=== PATIENT | female | born 1940 | race Caucasian/White ===

== ENCOUNTER 2016-09-11 03:05 | Inpatient (IN) ==
[2016-09-04 12:49] LABS: MANUAL DIFF NEEDED? NO; URINE MICRO REVIEW NEEDED? NO; URINE SOURCE CLEAN CATCH
[2016-09-04 12:53] LABS: BASO% 0.3 % (0.0-0.8); EOS# 0.08 X1000 (0.0-0.7); EOS% 0.9 % (0.0-10.0); HEMATOCRIT 38.6 % (37.0-47.0); HEMOGLOBIN 13.5 g/dL (12.0-16.0); LYMPH# 1.91 X1000 (1.2-3.4); LYMPH% 21.5 % (20.5-51.1); MCV 91.5 FL (81-99); MONO# 0.62 X1000 (0.11-0.59); MPV 9.4 FL (7.4-10.4); NEUT% 70.3 % (42.2-75.2); PLT 285 X1000 (130-400); RBC 4.22 XMIL (4.2-5.4)
[2016-09-04 12:54] LABS: BILIRUBIN URINE NEGATIVE (NEGATIVE); BLOOD URINE NEGATIVE (NEGATIVE); COLOR YELLOW; GLUCOSE URINE NEGATIVE (NEGATIVE); LEUKOCYTES URINE NEGATIVE (NEGATIVE); NITRITE URINE NEGATIVE (NEGATIVE); PROTEIN URINE NEGATIVE (NEGATIVE); SP GRAVITY URINE 1.013; TURBIDITY URINE CLEAR (CLEAR); UR EPITHELIAL CELLS <10 /HPF (<10); URINE BACTERIA NEGATIVE /HPF; URINE RBC <10 /HPF (<10); URINE WBC <10 /HPF (<10); UROBILINOGEN URINE NORMAL (NORMAL)
[2016-09-04 13:01] LABS: INR 0.96; PTT 27.1 Seconds (22.0-36.0)
[2016-09-04 13:22] LABS: AGAP 15; BUN 8 mg/dL (8-22); CALCIUM 9.6 mg/dL (8.8-10.2); CHLORIDE 96 mmol/L (98-107); COSMO 270; POTASSIUM 3.7 mmol/L (3.5-5.1); SODIUM 135 mmol/L (136-145); TCO2 24 mmol/L (25-35)
--- NOTE | 2016-09-04 16:15 | EKG Report ---
Test Performed on : 09/04/2016 12:32:37 PM Test Reason : PAT CAMP JOINT Blood Pressure : / mmHG Vent. Rate : 106 BPM Atrial Rate : 106 BPM P-R Int : 174 ms QRS Dur : 068 ms QT Int : 326 ms P-R-T Axes : 087 074 077 degrees QTc Int : 433 ms Sinus tachycardia. Possible Left atrial enlargement Nonspecific ST abnormality Abnormal ECG No previous ECGs available Confirmed by Vladimir DE LA PAZ, Codey Michaels ([id number]) on 09/06/2016 7:09:35 AM
[2016-09-11] MEDS ORDERED: FLEXERIL PO PRN (06:39)
[2016-09-11] MEDS ORDERED: SODIUM CHLORIDE 0.9% ONE (08:17)
[2016-09-11] MEDS ORDERED: TORADOL ONE (08:17)
[2016-09-11] MEDS ORDERED: VANCOMYCIN ONE (08:17)
[2016-09-11] MEDS ORDERED: CYKLOKAPRON 1,000 MG/NS 1,000 MG/100 ML IVPB ONE ×2 (08:17→08:19)
[2016-09-11] MEDS ORDERED: MARCAINE 0.25% PF/EPI 1:200,000 ONE (08:17)
[2016-09-11] MEDS ORDERED: NEOSPORIN G.U. IRRIGANT ONE (08:18)
[2016-09-11] MEDS ORDERED: EXPAREL 1.3% ONE (08:18)
[2016-09-11] MEDS ORDERED: COLACE ONE (08:28)
[2016-09-11] MEDS ORDERED: PEPCID ONE (08:28)
[2016-09-11] MEDS ORDERED: CELEBREX ONE (08:29)
[2016-09-11] MEDS ORDERED: KEFZOL 1 GM/D5W 1 GM/50 ML IVPB ONE (08:29)
[2016-09-11] MEDS ORDERED: LR 1,000 ML ONE (08:29)
[2016-09-11] MEDS ORDERED: LYRICA ONE (08:29)
[2016-09-11] MEDS ORDERED: REGLAN ONE (08:29)
--- NOTE | 2016-09-11 08:36 | HISTORY AND PHYSICAL ---
CHIEF COMPLAINT: Right knee pain. HISTORY OF PRESENT ILLNESS: This is a 76-year-old white female with a history of degenerative right knee. She has had considerable conservative treatment to include injections, medications, and other measures. However, these were only temporary and now she needs a right total knee arthroplasty. The surgical procedure as well as risks and benefits were explained to the patient and at this time she has agreed to proceed. ALLERGIES: Not allergic to any medications. PAST MEDICAL HISTORY: Serious illnesses: None. PAST SURGICAL HISTORY: ACDF, hysterectomy, and breast biopsy that was negative. REGULAR MEDICATIONS: Relafen 2 a day, pravastatin 1 a day, Premarin 1 a day, Flexeril p.r.n. REVIEW OF SYSTEMS: HEENT: No history of migraines, dizziness, loss conscious, CVA. Respiratory: She is a nonsmoker. No history of asthma, emphysema, shortness breath. Heart: No history heart abnormalities. Abdomen: No history of ulcer or digestive disorders. PHYSICAL EXAMINATION: GENERAL: This is a 76-year-old female, alert, and oriented. Her primary care physician is Dr. Ron. HEENT: Pupils equal, round, reactive. NECK: Good range of motion without adenopathy. She has had an ACDF. RESPIRATORY: Respirations equal, unlabored, clear bilaterally. HEART: Regular rate and rhythm. ABDOMEN: Soft, nontender. Bowel sounds present. EXTREMITIES: She complains of pain in her right knee and sometimes this pain is severe. She states she sometimes has difficulty walking and walks with a limp. She has minimal swelling at this time. Good sensation and pulses distally. IMPRESSION: Degenerative disease right knee. PLAN: Admitted at this time for right total knee arthroplasty. Dictated by Cyrus Barnes RN for Mina Shetty MD This chart was documented by the indicated scribe, Cyrus Barnes RN and accurately reflects the services I performed and decisions made by me, Mina Shetty MD, as attested by the provider's signature. cc: Mina Shetty MD
[2016-09-11 10:17] LABS: URINE MICRO REVIEW NEEDED? NO; URINE SOURCE CATH
[2016-09-11 10:21] LABS: BILIRUBIN URINE NEGATIVE (NEGATIVE); BLOOD URINE NEGATIVE (NEGATIVE); COLOR YELLOW; GLUCOSE URINE NEGATIVE (NEGATIVE); LEUKOCYTES URINE NEGATIVE (NEGATIVE); NITRITE URINE NEGATIVE (NEGATIVE); PROTEIN URINE NEGATIVE (NEGATIVE); SP GRAVITY URINE 1.009; TURBIDITY URINE CLEAR (CLEAR); UROBILINOGEN URINE NORMAL (NORMAL)
[2016-09-11 10:22] LABS: UR EPITHELIAL CELLS <10 /HPF (<10); URINE BACTERIA NEGATIVE /HPF; URINE RBC <10 /HPF (<10); URINE WBC <10 /HPF (<10)
[2016-09-11] MEDS ORDERED: DIPRIVAN 1% ONE (11:46)
[2016-09-11] MEDS ORDERED: FENTANYL ONE (11:47)
[2016-09-11] MEDS ORDERED: VERSED ONE (11:47)
[2016-09-11] MEDS ORDERED: NS 1,000 ML ONE (12:05)
--- NOTE | 2016-09-11 12:41 | Diag Imaging Result Doc PS360 ---
EXAM: KNEE 1-2 VIEWS-RIGHT HISTORY: right TKA COMMENT: There has been total knee arthroplasty. The alignment is apparently anatomic. IMPRESSION: Postsurgical changes Electronically signed by Eric Lu 09/11/2016 12:39 PM
[2016-09-11] MEDS ORDERED: MILK OF MAGNESIA PO PRN (13:00)
[2016-09-11] MEDS ORDERED: MORPHINE IV PRN (13:00)
[2016-09-11] MEDS ORDERED: NS 1,000 ML IV SCH (13:00)
[2016-09-11] MEDS ORDERED: ZOFRAN PO PRN (13:00)
[2016-09-11] MEDS: TYLENOL PO SCH ×2 (14:08→19:57)
[2016-09-11] MEDS ORDERED: ZOFRAN ONE (14:41)
[2016-09-11] MEDS ORDERED: XYLOCAINE-MPF 2% ONE (14:41)
[2016-09-11] MEDS ORDERED: DECADRON ONE (14:41)
[2016-09-11] MEDS ORDERED: LR 2,000 ML ONE (14:41)
[2016-09-11] MEDS ORDERED: OFIRMEV 1000 MG/ISOTONIC SOLN 1,000 MG/100 ML BOTTLE ONE (14:41)
[2016-09-11] MEDS: OXY IR PO PRN ×3 (14:59→23:19)
--- NOTE | 2016-09-11 15:25 | OPERATIVE NOTE ---
PROCEDURE DATE: 09/11/2016 PREOPERATIVE DIAGNOSIS: Degenerative arthritis of the right knee. POSTOPERATIVE DIAGNOSIS: Degenerative arthritis of the right knee. PROCEDURE: Right total knee arthroplasty with DePuy Attune size 5, narrow posterior stabilized femur, size 5 tibial tray, 12 mm rotating platform tibial insert, and a 32 mm medialized anatomic patella. SURGEON: Mina Shetty MD. CERTIFIED SURGICAL ASSISTANT: KEVIN Mcclellan. SECOND CERTIFIED SURGICAL ASSISTANT: Cyrus Barnes RN. ANESTHESIA: Spinal. IV FLUIDS: 1800 mL lactated Ringer's. ESTIMATED BLOOD LOSS: 75 mL. TOURNIQUET TIME: 85 minutes at 350 mmHg. COMPLICATIONS: None. INDICATION: The patient is a pleasant 76-year-old female with a chronic history of worsening pain and discomfort in her right knee. Continued pain and discomfort despite appropriate nonoperative treatment. X-rays reveal underlying degenerative osteoarthritis and recommendation to proceed with right total knee arthroplasty was offered. Risks and benefits of surgery were explained, including the risks of anesthesia, , bleeding, infection, failure to relieve pain, postoperative stiffness, nerve injury, blood clots, and other imponderables. All questions answered and the patient and family wished to proceed with surgery. DETAILS OF OPERATION: The patient was taken to the operating room and placed supine on the operating table. Once adequate anesthesia was obtained, the patient's right lower extremity was subsequently prepped and draped in the usual sterile fashion. Esmarch was used to exsanguinate the right lower extremity and the tourniquet was inflated to 350 mmHg. A standard anterior incision was made with a skin knife. Medial and lateral skin envelopes were developed. Standard medial parapatellar arthrotomy was then performed. Retractors were then placed. Approximately 1 cm anterior to the PCL insertion a starting reamer was passed. Intramedullary guide with a distal cutting block was pinned in position. The sizing block was then placed and measured to a size 5. Corresponding pins were placed. Anterior, posterior, and chamfer cuts were then made. Attention then turned to the proximal tibia. Further resection of the ACL and PCL was performed. Using the extramedullary guide, the proximal tibia cutting block was pinned in position and had good alignment, confirmed with the alignment shravan. The proximal tibia was then resected in standard fashion. The medial and lateral meniscus was excised and a curved osteotome was used to remove the posterior osteophytes off the distal femur. A spacer block was placed and good soft tissue balance in both flexion and extension. Attention then turned to the proximal tibia once again and a size 5 tibial tray was pinned in position. This was followed a central reamer and a fin punch. Attention then turned to the distal femur where a box cutting guide was pinned in position. Box cut was then performed. Trial femoral component was then placed and 2 lug holes were drilled. Trial tibial insert was then placed and had good soft tissue balancing. The patella was everted and resected in standard fashion. A 32 appeared to correct size. Corresponding holes were drilled. The trial patella component was then placed in position and had good patellofemoral tracking. The components were then removed. Copious irrigation was then performed with antibiotic pulsatile lavage while vancomycin was mixed with cement on the back table. Sequential cementing was then performed, first with the tibial tray and excess cement removed, followed by a femoral component and excess cement was removed. The patella was cemented in standard fashion and patella clamp was placed. Exparel was placed in deep soft tissue, as well subcutaneous tissue while the cement was curing. After cement cured peripheral cement was removed a small osteotome. A 12 mm rotating platform tibial insert appeared to be the correct size. The trial component was then removed. Exparel was placed in the deep posterior capsule. The wound was copiously once again with antibiotic pulsatile lavage and a 12 mm rotating platform tibial insert was then placed. The knee was then carried through range of motion and had good soft tissue balancing and good patellofemoral tracking. A 1/8 Hemovac drain was placed but was not sewn in. Copious irrigation then performed once again with antibiotic pulsatile lavage. Number 1 Vicryl was used to repair the arthrotomy, followed by 2-0 Vicryl to repair the subcutaneous tissue and skin tyson. Adaptic, sterile 4 x 4, Webril, cryo unit, and Harry wrap was applied to the right lower extremity. The patient tolerated the procedure well without complications. Transferred to the recovery room in stable conditions. cc: Mina Shetty MD
[2016-09-11] MEDS ORDERED: LABETALOL IV ONE (16:30)
[2016-09-11] MEDS: KEFZOL 1 GM/D5W 1 GM/50 ML IVPB IV SCH (16:48)
[2016-09-11] MEDS: COLACE PO SCH (19:56)
[2016-09-11] MEDS: PRAVACHOL PO SCH (19:57)
[2016-09-11] MEDS: PERIDEX MT SCH (19:58)
[2016-09-12] MEDS: COLACE PO SCH ×2 (01:55→10:29)
[2016-09-12] MEDS: PERIDEX MT SCH ×2 (01:55→10:29)
[2016-09-12] MEDS: PRAVACHOL PO SCH ×2 (01:56→10:29)
[2016-09-12] MEDS: TYLENOL PO SCH ×2 (02:02→10:29)
[2016-09-12] MEDS: KEFZOL 1 GM/D5W 1 GM/50 ML IVPB IV SCH (02:03)
[2016-09-12 05:26] LABS: HEMATOCRIT 28.7 % (37.0-47.0); HEMOGLOBIN 9.6 g/dL (12.0-16.0)
[2016-09-12 05:38] LABS: AGAP 11; BUN 8 mg/dL (8-22); CALCIUM 8.2 mg/dL (8.8-10.2); CHLORIDE 103 mmol/L (98-107); COSMO 274; SODIUM 138 mmol/L (136-145); TCO2 24 mmol/L (25-35)
[2016-09-12] MEDS: OXY IR PO PRN ×2 (05:47→10:29)
[2016-09-12] MEDS ORDERED: XARELTO PO SCH (06:00)
--- NOTE | 2016-09-12 07:36 | PROGRESS NOTE ---
DATE: 09/12/2016 SUBJECTIVE: The patient is a pleasant 76-year-old female who is 1 day status post knee arthroplasty. She is currently resting comfortably and has no complaints. OBJECTIVE: On physical exam, the patient's dressing is intact. Calf is soft. She has active dorsiflexion and plantar flexion. Hemoglobin is 9.6, hematocrit is 28.7. IMPRESSION: Postop day #1 status post right total knee arthroplasty. PLAN: At this time, we will discontinue her drain and Munoz. We will also change her dressing. We will Hep-Lock her IV. We will mobilize physical therapy and consult [employer] [employer] to arrange for home physical therapy. We will plan on discharge once patient is mobilizing well. cc: Mina Shetty MD
[2016-09-12] MEDS ORDERED: PEPCID PO SCH (09:00)
[2016-09-12] MEDS ORDERED: RELAFEN PO SCH (09:00)
[2016-09-12] MEDS ORDERED: PREMARIN PO SCH (09:00)
[2016-09-12 11:09] VITALS: BP 141/59
== END 2016-09-12 14:06 | disposition home health service (06) ==
LOC: SURHOLD 03:05 → 4N 12:46
PROVIDERS: ADMIT Orthopaedic Surgery Adult Reconstructive Orthopaedic Surgery; ATTEND Orthopaedic Surgery Adult Reconstructive Orthopaedic Surgery

== ENCOUNTER 2019-05-24 03:24 | Inpatient (IN) ==
--- NOTE | 2019-05-19 17:12 | EKG Report ---
Test Performed on : 05/19/2019 5:07:23 PM Test Reason : PAT Blood Pressure : / mmHG Vent. Rate : 087 BPM Atrial Rate : 087 BPM P-R Int : 152 ms QRS Dur : 064 ms QT Int : 322 ms P-R-T Axes : 084 064 067 degrees QTc Int : 387 ms Normal sinus rhythm. Possible Left atrial enlargement Septal infarct , age undetermined Abnormal ECG When compared with ECG of 04-SEP-2016 12:32, Septal infarct is now present Confirmed by Jimbo DE LA PAZ, Artie Morelos ([id number]) on 05/20/2019 2:35:40 PM
[2019-05-19 17:35] LABS: URINE SOURCE CLEAN CATCH
[2019-05-19 18:32] LABS: BILIRUBIN URINE NEGATIVE (NEGATIVE); BLOOD URINE NEGATIVE (NEGATIVE); COLOR YELLOW; GLUCOSE URINE NEGATIVE (NEGATIVE); KETONE URINE NEGATIVE (NEGATIVE); LEUKOCYTES URINE NEGATIVE (NEGATIVE); NITRITE URINE NEGATIVE (NEGATIVE); PH URINE 6.5; PROTEIN URINE NEGATIVE (NEGATIVE); SP GRAVITY URINE 1.013; TURBIDITY URINE CLEAR (CLEAR); UR EPITHELIAL CELLS <10 /HPF (<10); URINE BACTERIA NEGATIVE /HPF; URINE RBC <10 /HPF (<10); URINE WBC <10 /HPF (<10); UROBILINOGEN URINE NORMAL (NORMAL)
[2019-05-19 18:33] LABS: BASO# 0.08 X1000 (0.0-0.2); BASO% 1.2 % (0.0-0.8); EOS# 0.14 X1000 (0.0-0.7); HEMOGLOBIN 12.7 g/dL (12.0-16.0); IMM GRAN# 0.04 X1000 (0.0-0.04); IMM GRAN% 0.6 % (0.0-0.5); LYMPH# 1.48 X1000 (1.2-3.4); LYMPH% 21.4 % (20.5-51.1); MCH 31.6 PG (27-31); MCHC 33.4 g/dL (33-37); MCV 94.5 FL (81-99); MONO# 0.51 X1000 (0.11-0.59); MONO% 7.4 % (1.7-9.3); MPV 9.4 FL (7.4-10.4); NEUT# 4.68 X1000 (1.4-6.5); NEUT% 67.4 % (42.2-75.2); PLT 306 X1000 (130-400); RBC 4.02 XMIL (4.2-5.4); RDW 12.6 % (11.5-14.5); WBC 6.93 X1000 (4.8-10.8)
[2019-05-19 18:41] LABS: HEMOGLOBIN A1C 5.4 % (4.8-6.0)
[2019-05-19 18:49] LABS: INR 0.92; PROTIME 12.4 Seconds (11.0-16.0)
[2019-05-19 18:51] LABS: AGAP 14; ALBUMIN 4.2 g/dL (3.5-5.0); BUN 14 mg/dL (8-22); CHLORIDE 93 mmol/L (98-107); COSMO 259; CREATININE 0.8 mg/dL (0.5-0.9); ESTIMATED GFR > 60; GLUCOSE 95 mg/dL (70-104); POTASSIUM 4.1 mmol/L (3.5-5.1); SODIUM 129 mmol/L (136-145); TCO2 22 mmol/L (25-35)
[2019-05-24] MEDS ORDERED: KEFZOL 1 GM/D5W 1 GM/50 ML IVPB ONE (06:02)
[2019-05-24] MEDS ORDERED: PEPCID ONE (06:02)
[2019-05-24] MEDS ORDERED: LR 1,000 ML ONE (06:02)
[2019-05-24] MEDS ORDERED: CELEBREX ONE (06:02)
[2019-05-24] MEDS ORDERED: COLACE ONE (06:02)
[2019-05-24] MEDS ORDERED: LYRICA ONE (06:02)
[2019-05-24] MEDS ORDERED: REGLAN ONE (06:02)
[2019-05-24] MEDS ORDERED: XYLOCAINE-MPF 2% ONE (06:40)
[2019-05-24] MEDS ORDERED: DIPRIVAN 1% ONE (06:44)
[2019-05-24] MEDS ORDERED: DURAMORPH ONE (06:48)
[2019-05-24] MEDS ORDERED: TORADOL ONE (06:48)
[2019-05-24] MEDS ORDERED: SODIUM CHLORIDE 0.9% ONE (06:49)
[2019-05-24] MEDS ORDERED: CYKLOKAPRON 1,000 MG/NS 1,000 MG/100 ML IVPB ONE (06:49)
[2019-05-24 06:50] LABS: AGAP 16; BUN 11 mg/dL (8-22); CALCIUM 10.2 mg/dL (8.8-10.2); CHLORIDE 91 mmol/L (98-107); COSMO 259; CREATININE 0.8 mg/dL (0.5-0.9); ESTIMATED GFR > 60; GLUCOSE 113 mg/dL (70-104); SODIUM 129 mmol/L (136-145); TCO2 22 mmol/L (25-35)
[2019-05-24] MEDS ORDERED: EXPAREL 1.3% ONE (06:50)
[2019-05-24] MEDS ORDERED: NEOSPORIN G.U. IRRIGANT ONE (06:50)
[2019-05-24] MEDS ORDERED: MARCAINE 0.25% PF ONE (06:52)
[2019-05-24] MEDS ORDERED: FENTANYL ONE (07:04)
[2019-05-24] MEDS ORDERED: NEO-SYNEPHRINE ONE (07:38)
[2019-05-24] MEDS ORDERED: ZOFRAN ONE (07:47)
[2019-05-24] MEDS ORDERED: OFIRMEV 1000 MG/ISOTONIC SOLN 1,000 MG/100 ML BOTTLE ONE (07:48)
[2019-05-24] MEDS ORDERED: DECADRON ONE (07:48)
[2019-05-24 09:04] LABS: URINE SOURCE CATH
[2019-05-24 09:12] LABS: BILIRUBIN URINE NEGATIVE (NEGATIVE); BLOOD URINE NEGATIVE (NEGATIVE); COLOR STRAW; GLUCOSE URINE NEGATIVE (NEGATIVE); KETONE URINE TRACE mg/dL (NEGATIVE); LEUKOCYTES URINE NEGATIVE (NEGATIVE); NITRITE URINE NEGATIVE (NEGATIVE); PROTEIN URINE NEGATIVE (NEGATIVE); SP GRAVITY URINE 1.005; TURBIDITY URINE CLEAR (CLEAR); UROBILINOGEN URINE NORMAL (NORMAL)
[2019-05-24 09:13] LABS: UR EPITHELIAL CELLS <10 /HPF (<10); URINE BACTERIA NEGATIVE /HPF; URINE RBC <10 /HPF (<10); URINE WBC <10 /HPF (<10)
[2019-05-24] MEDS ORDERED: NS 1,000 ML ONE (09:25)
--- NOTE | 2019-05-24 09:35 | OPERATIVE NOTE ---
PROCEDURE DATE: 05/24/2019 PREOPERATIVE DIAGNOSIS: Right hip degenerative joint disease. POSTOPERATIVE DIAGNOSIS: Right hip degenerative joint disease. PROCEDURE PERFORMED: Right anterior total hip arthroplasty using [facility] size 54 hemispherical shell with two 6.5 cancellous screws of 30 and 25 mm, and a 36 mm inside diameter liner with a size 7 high offset stem and a 36 mm ceramic head. ANESTHESIA: Spinal. SURGEON: Marshall Genao MD. W[employer]ESS STORE MANAGER: KEVIN Santiago. COMPLICATIONS: None. BLOOD LOSS: Minimal. DESCRIPTION OF PROCEDURE: Patient was brought to the operative suite and placed in the supine position. After successful administration of spinal anesthesia, patient was placed on the OSI table in the usual position for a right hip. The right hip was then prepped and draped in the usual sterile fashion. A longitudinal incision was made beginning 3 cm distal and 3 cm lateral to the anterior-superior iliac spine, extending distally and slightly laterally 8 cm, dissecting sharply through the skin and subcutaneous tissue down to the tensor fascia. Tensor fascia was incised and dissected bluntly down to the deep tensor fascia. Deep tensor fascia was incised. The circumflex vessels were electrocauterized, exposing the anterior capsule. T-capsulotomy was performed, exposing the femoral neck. The femoral neck cut was made with an oscillating saw. The femoral head was removed with a power corkscrew. The labrum was resected. The acetabulum was serially reamed to a 54 cup. The 54 cup was then driven into place in the proper amount of inclination and anteversion. Two 6.5 cancellous screws were placed, a 30 mm superiorly and a 25 mm posterosuperiorly. The 36 mm inside diameter liner was then locked in the shell. The femur was externally rotated, extended, adducted, and elevated out of the wound with the hook on the OSI bed. The lateral neck was rongeured. The canal was serially broached to a size 7. A size 7 high offset neutral neck length 36 mm head was trialed and found to be excellent offset, excellent fit and fill stem, and excellent leg length, and excellent hip stability. The trial was removed. The definitive stem was seated on the femur and the ceramic head was seated on the Dash taper. The hip was again reduced. It was again found to be in excellent position. The hip was copiously infiltrated with Exparel including the posterior capsule, anterior capsule, intramuscular and subcutaneous tissue. The hip was copiously irrigated with normal saline containing irrigant and Vashe irrigation. The anterior capsule was repaired with 0 V-Loc. The tensor was closed with 0 V-Loc. The skin edge was approximated with 2-0 Vicryl, closed with 4-0 Monocryl, and a Prineo dressing. The patient tolerated the procedure well without complications. At the end of the procedure, all counts were correct x2. The patient was transferred to the recovery room in stable condition. cc: Marshall Genao MD
[2019-05-24] MEDS ORDERED: MILK OF MAGNESIA PO PRN (10:45)
[2019-05-24] MEDS ORDERED: OXY IR PO PRN ×2 (10:45)
[2019-05-24] MEDS ORDERED: ZOFRAN ODT PO PRN (10:45)
[2019-05-24] MEDS ORDERED: MORPHINE IV PRN ×3 (10:45)
[2019-05-24] MEDS ORDERED: ZOFRAN IV PRN (10:45)
[2019-05-24] MEDS ORDERED: CYKLOKAPRON 1,000 MG in NS 100 ML IV ONE (13:30)
[2019-05-24] MEDS ORDERED: FLEXERIL PO PRN (14:12)
[2019-05-24] MEDS: NS 1,000 ML IV SCH (14:18)
[2019-05-24] MEDS: KEFZOL 1 GM/D5W 1 GM/50 ML IVPB IV SCH (15:39)
[2019-05-24] MEDS: TYLENOL PO SCH ×2 (15:39→21:39)
[2019-05-24] MEDS: ULTRAM PO SCH ×2 (15:40→21:40)
[2019-05-24] MEDS ORDERED: PREMARIN PO SCH (21:00)
[2019-05-24] MEDS ORDERED: PRAVACHOL PO SCH (21:00)
[2019-05-24] MEDS: CELEBREX PO SCH (21:39)
[2019-05-24] MEDS: COLACE PO SCH (21:39)
[2019-05-24] MEDS: PERIDEX MT SCH (21:39)
[2019-05-24] MEDS: LYRICA PO SCH (21:39)
[2019-05-25] MEDS: KEFZOL 1 GM/D5W 1 GM/50 ML IVPB IV SCH (00:15)
[2019-05-25] MEDS: NS 1,000 ML IV SCH (00:15)
[2019-05-25] MEDS ORDERED: XARELTO PO SCH (06:00)
[2019-05-25 06:23] LABS: HEMATOCRIT 24.8 % (37.0-47.0); HEMOGLOBIN 8.4 g/dL (12.0-16.0)
[2019-05-25 06:42] LABS: AGAP 11; BUN 10 mg/dL (8-22); CALCIUM 8.5 mg/dL (8.8-10.2); CHLORIDE 94 mmol/L (98-107); COSMO 252; CREATININE 0.8 mg/dL (0.5-0.9); ESTIMATED GFR > 60; GLUCOSE 98 mg/dL (70-104); POTASSIUM 4.9 mmol/L (3.5-5.1); SODIUM 126 mmol/L (136-145); TCO2 21 mmol/L (25-35)
[2019-05-25] MEDS: TYLENOL PO SCH ×2 (06:56→13:04)
[2019-05-25] MEDS: ULTRAM PO SCH ×2 (06:56→13:04)
[2019-05-25] MEDS ORDERED: SALINE LOCK IV FLUID XX ONE (07:38)
[2019-05-25] MEDS ORDERED: NS 500 ML IV ONE (07:44)
[2019-05-25] MEDS ORDERED: COZAAR PO SCH (09:00)
[2019-05-25] MEDS ORDERED: DECADRON IV ONE (09:00)
[2019-05-25] MEDS ORDERED: CENTRUM SILVER PO SCH (09:00)
[2019-05-25] MEDS ORDERED: OSCAL 500 + D PO SCH (09:00)
[2019-05-25] MEDS ORDERED: PEPCID PO SCH (09:00)
[2019-05-25] MEDS: CELEBREX PO SCH (09:30)
[2019-05-25] MEDS: COLACE PO SCH (09:31)
[2019-05-25] MEDS: LYRICA PO SCH (09:31)
[2019-05-25] MEDS: PERIDEX MT SCH (09:34)
[2019-05-25] MEDS ORDERED: NS 500 ML IV SCH (11:00)
[2019-05-25 13:09] VITALS: BP 165/81
--- NOTE | 2019-05-25 20:40 | DISCHARGE SUMMARY ---
ADMISSION DATE: 05/24/2019 DISCHARGE DATE: 05/25/2019 DISCHARGE DIAGNOSIS: Right hip degenerative joint disease status post right anterior total hip arthroplasty. DISCHARGE MEDICATIONS: See the discharge medications list. DISPOSITION: Patient discharged home with home health physical therapy. Patient instructed to return for any signs or symptoms of infection or deep venous thrombosis. Instructed to return to see Dr. Genao next . HOSPITAL COURSE: On the day of admission patient underwent a right total hip arthroplasty. Her postoperative course was unremarkable. She complained of some of mild thigh numbness and her hematocrit was 24.8. We decided to transfuse her 1 unit. She was ambulating well with physical therapy. Her wound is clean, dry, intact. Her leg is neurovascularly intact without sign of infection or deep venous thrombosis. She is discharged home in stable condition, instructed to follow up as described above. cc: Marshall Genao MD
== END 2019-05-25 14:17 | disposition home health service (06) | DRG 470 ==
LOC: SURHOLD 03:24 → 4N 07:30
PROVIDERS: ADMIT Orthopaedic Surgery; ATTEND Orthopaedic Surgery